=== PATIENT | male | born 1950 | race African-American/Black ===

== ENCOUNTER → 2018-07-16 | Day surgery (SDC) | payer OTHER ==
[~2018-07-16] MED LIST: LIDOCAINE 1% MPF 5 ML VIAL ONE; NA CHLORIDE 0.9% 1,000 ML ONE; PROPOFOL 200 MG/20 ML VIAL IV ONE
--- OUTSIDE RECORDS SUMMARY | 2018-07-16 06:27 | XMS REPORT | Summary of Care ---
:1950 Author Organization [facility] Internal Medicine [facility] [address] [place] [address]- Encounter HQ Yenny(FIN) [id number] Date(s): 05/06/18 - 05/06/18 [facility] Internal [facility] [place] [address] [place] [phone] Discharge Disposition: Home or Self Care Attending Physician: VISIT, NURSE [facility] SLEEP Vital Signs Most recent to oldest [Reference Range]: 1 Blood Pressure [90-140/60-90 mmHg] 126/76 mmHg (05/06/18 2:39 PM) Peripheral Pulse Rate [60-100 bpm] 76 bpm (05/06/18 2:39 PM) Weight 93.636 kg (05/06/18 2:39 PM) Problem List Condition Effective Dates Status Health Status Informant Hypertension(Confirmed) Active Obstructive sleep apnea, Active adult(Confirmed) Allergies, Adverse Reactions, Alerts Substance Reaction Severity Status NKDA1 Active 1Data migrated from [employer] on 05/15/15. Originally documented as NKA. Medications Azopt 1% ophthalmic suspension 2 drp, OPTH, BID, # 10 mL, 0 Refill(s) Start Date: 05/06/18 Status: OrderedCombigan ophthalmic solution 1 drp, OPTH, Q12H, # 10 mL, 0 Refill(s) Start Date: 05/06/18 Status: Orderedfinasteride 5 mg oral tablet 5 mg=1 tab, PO, Daily, # 90 tab, 0 Refill(s) Start Date: 05/06/18 Status: Orderedhydrochlorothiazide-lisinopril 12.5 mg-20 mg oral tablet 1 tab, PO, Daily, # 90 tab, 1 Refill(s) Start Date: 05/06/18 Status: OrderedmetFORMIN 500 mg oral tablet 500 mg=1 tab, PO, BID-Meals, # 60 tab, 0 Refill(s) Start Date: 05/06/18 Status: Orderedrosuvastatin 20 mg oral tablet 20 mg=1 tab, PO, Bedtime, # 90 tab, 3 Refill(s) Start Date: 05/06/18 Stop Date: 08/04/18 Status: Ordered Results No data available for this section Immunizations No data available for this section Procedures Procedure Date Related Diagnosis Body Site Status TURP - Transurethral resection of 03/23/15 Completed prostate Social History Social History Type Response Alcohol Current, Type Beer. Frequency: Daily. 2 Drinks/Episode average. Alcohol use interferes with work or home: No. Smoking Status Never smoker; Exposure to Tobacco Smoke None; Cigarette Smoking Last 365 Days No; Reg Smoking Cessation Counseling No entered on: 05/06/18 Assessment and Plan No data available for this section
--- OUTSIDE RECORDS SUMMARY | 2018-07-16 06:27 | XMS REPORT | Summary of Care ---
:1950 Author Organization [facility] Internal Medicine [place] Address [address] [facility] [place] [address]- Encounter HQ Encntr_alias(FIN) [id number] Date(s): 10/22/17 - 10/22/17 [facility] Internal Medicine [place] [address] [facility] [place] [address] [phone] Discharge Disposition: Home or Self Care Attending Physician: VISIT, NURSE [facility] SLEEP Vital Signs Most recent to oldest [Reference Range]: 1 Blood Pressure [90-140/60-90 mmHg] 130/78 mmHg (10/22/17 2:23 PM) Peripheral Pulse Rate [60-100 bpm] 85 bpm (10/22/17 2:23 PM) Weight 93.636 kg (10/22/17 2:23 PM) Problem List Condition Effective Dates Status Health Status Informant Hypertension(Confirmed) Active Obstructive sleep apnea, Active adult(Confirmed) Allergies, Adverse Reactions, Alerts Substance Reaction Severity Status NKDA1 Active 1Data migrated from [employer] on 05/15/15. Originally documented as NKA. Medications No Known Medications Results No data available for this section [...]
--- OUTSIDE RECORDS SUMMARY | 2018-07-16 06:27 | XMS REPORT | Continuity of Care Document ---
:1950 Author Organization Interface Problems Problem Status Onset Classification Date Comments Source Date Reported Hypertension Active Problem 05/11/2018 [facility] Obstructive Active Problem 05/11/2018 Medical sleep apnea, Group adult Medications Medication Details Route Status Patient Ordering Order Source Instructions Provider Date Brimonidine tartrate 1 drp, Active 2 MG/ML / Timolol 5 OPTH, 019 Medical MG/ML Ophthalmic Q12H, # Group Solution [Combigan] 10 mL, 0 Refill(s) brinzolamide 10 MG/ML 2 drp, Active Ophthalmic Suspension OPTH, 019 Medical [Azopt] BID, # 10 Group mL, 0 Refill(s) finasteride 5 mg oral 5 mg=1 Active tablet tab, PO, 019 Medical Daily, # Group 90 tab, 0 Refill(s) rosuvastatin 20 mg 20 mg=1 Active oral tablet tab, PO, 019 Medical Bedtime, Group # 90 tab, 3 Refill(s) Hydrochlorothiazide 1 tab, Active 12.5 MG / Lisinopril PO, 019 Medical 20 MG Oral Tablet Daily, # Group 90 tab, 1 Refill(s) Metformin 500 mg=1 Active hydrochloride 500 MG tab, PO, 019 Medical Oral Tablet BID-Meals Group , # 60 tab, 0 Refill(s) Allergies, Adverse Reactions, Alerts Substance Category Reaction Severity Reaction Status Date Comments Source type Reported Immunizations Immunization Date Given Site Status Last Updated Comments Source Results Order Results Value Reference Date Interpretation Comments Source Name Range Vital Signs Vital Sign Value Date Comments Source Systolic (mm Hg) 126 05/06/2018 [facility] Diastolic (mm Hg) 76 05/06/2018 [facility] Weight 93.636 05/06/2018 [facility] Heart Rate 76 05/06/2018 [facility] Weight 93.636 10/22/2017 [facility] Heart Rate 85 10/22/2017 [facility] Systolic (mm Hg) 130 10/22/2017 [facility] Diastolic (mm Hg) 78 10/22/2017 [facility] Encounters Location Location Encounter Encounter Reason Attending ADM DC Status Source Details Type Number For Provider Date Date Visit Outpatient [id number] SLEEP LAB 08/21 [place] [facility] [id number] SLEEP LAB 10/22 [facility] Outpatient [id number] NURSE 10/22 10/23 Internal VISIT /2017 [facility] [place] [facility] [id number] SLEEP LAB 05/06 [facility] Outpatient [id number] NURSE 05/06 05/07 Internal VISIT /2018 [facility] [place] [facility] [id number] SLEEP LAB 10/28 [place] [facility] [id number] SLEEP LAB 10/28 [place] Procedures Procedure Code Date Perfomer Comments Source TURP - Transurethral [id number] 03/23/2015 Medical resection of Group prostate
--- OUTSIDE RECORDS SUMMARY | 2018-07-16 06:27 | XMS REPORT | Encounter Summary ---
:1950 Author Care Team Providers Name Role Phone Sean Robert MD Primary Care Provider [phone] Reason for Visit new patient Instructions 1. Benign essential hypertension high blood pressure: care instructions learning about high blood pressure CMP, serum or plasma CBC w/ auto diff 2. Type 2 diabetes mellitus without complication hemoglobin A1c, QN, blood microalbumin, urine 3. Mixed hyperlipidemia lipid panel, serum 4. Blurring of visual image ophthalmology referral 5. Screening for malignant neoplasm of colon general surgery referral Discussion Note: None recorded. Plan of Care Reminders Provider Appointments Follow up Sean Robert MD 11/01/2018 3:30PM Lab CMP, Serum or [place] Plasma 05/04/2018 [facility] (Lab) CBC W/ Auto Diff [place] 05/04/2018 [facility] (Lab) Hemoglobin a1C, [place] QN, Blood 05/04/2018 [facility] (Lab) Microalbumin, [place] Urine 05/04/2018 [facility] (Lab) Lipid Panel, [place] Serum 05/04/2018 [facility] (Lab) Referral Ophthalmology Dl Carey Referral 05/20/2018 General Surgery Ruel Banda DO Referral 05/20/2018 Procedures None recorded. Surgeries None recorded. Imaging None recorded. Medications Name Start Date Azopt 1 % eye drops,suspension INSTILL 1 DROP INTO AFFECTED EYE(S) BY OPHTHALMIC ROUTE 3 TIMES PER DAY Combigan 0.2 %-0.5 % eye drops INSTILL 1 DROP INTO AFFECTED EYE(S) BY OPHTHALMIC ROUTE EVERY 12 HOURS finasteride 5 mg tablet Take 1 tablet every day by oral route. lisinopril 20 mg-hydrochlorothiazide 12.5 mg tablet Take 1 tablet every day by oral route. metformin 500 mg tablet Take 1 tablet twice a day by oral route. rosuvastatin 20 mg capsule 05/04/2018 Take 1 capsule every day by oral route. rosuvastatin 20 mg tablet Take 1 tablet every day by oral route. Medications Administered None recorded. Vitals Height Weight BMI Blood Pressure 72 in 209 lbs 28.3 kg/m2 126/92 mm[Hg] Lab Results None recorded. Allergies Code Code System Name Reaction Severity Status Onset NKDA Problems Name Status Onset Date Source Type 2 Diabetes Mellitus without Complication Active 05/04/2018 Mixed Hyperlipidemia Active 05/04/2018 Blurring of Visual Image Active 05/04/2018 Benign Essential Hypertension Active 05/04/2018 Procedures Date Name Performed by Prostate Surgery Information not available Vaccine List None recorded. Social History Smoking Status Former Smoker Past Encounters 05/04/2018 Benign Essential Hypertension; Type 2 Diabetes Mellitus without Complication; Mixed Hyperlipidemia; Blurring of Visual Image; Screening for Malignant Neoplasm of Colon Sean Robert MD: [address] [place] [address], [address], [place] [address], Ph. [phone] History of Present Illness Note: BLANK[employer] to me<div>CC DM</div><div>hpi 2 yr hx</div>& lt;div>CC htnb</div><div>hpi long standing</div><div> CC lipids</div><div>hpi 2 yr hx</div><div>non smoker drinks 2 beer per day</div><div>ros</div><div>gen healthy</div><div>cv neg</div><div>resp neg</div>& lt;div>gi neg</div><div>gu had BPH surg</div><div>m/ s neg</div><div>
</div>Review of Systems: ROS as noted in the HPI Review of Systems None recorded. Physical Exam Dr. Robert Brief Adult Exam - M/F Reported By: Patient Constitutional: General Appearance: healthy-appearing, well-nourished, well-developed. Level of Distress: NAD. Ambulation: ambulating normally ENMT: Ears: no lesions on external ear, EACs clear, TMs clear, TM mobility normal. Nose: nares patent, nasal passages clear. Oropharynx: moist mucous membranes, no erythema, no exudates, tonsils not enlarged Neck: Neck: supple, trachea midline, no masses, FROM. Lymph Nodes: no cervical LAD, no supraclavicular LAD Lungs: Auscultation: breath sounds normal, good air movement, CTA except as noted, no wheezing, no rales/crackles, no rhonchi Cardiovascular: Heart Auscultation: RRR, no rubs, no gallops. Neck vessels: no carotid bruits Musculoskeletal: Edema absent
--- OUTSIDE RECORDS SUMMARY | 2018-07-16 06:27 | XMS REPORT | Encounter Summary ---
:1950 Author Care Team Providers Name Role Phone Sean Robert MD Primary Care Provider [phone] Reason for Visit New Patient Instructions 1. Screening for malignant neoplasm of colon colonoscopy screening (PROC) Discussion Note: None recorded.Patient educational handouts: No information available. Plan of Care Reminders Provider Appointments Return to on or around [facility] Office 06/01/2018 MD Ace Follow up 11/01/2018 Sean Robert MD 3:30PM Lab None recorded. Referral None recorded. Procedures Colonoscopy 05/18/2018 Screening (PROC) Surgeries None recorded. Imaging None recorded. Medications [...] recorded. Vitals Height Weight BMI Blood Pressure 6 ft 207 lbs 28.1 kg/m2 107/93 mm[Hg] Lab Results Date Name Specimen Result Interpretation Description Value Range Status Address 05/04/2018 Hemoglobin Normal Hemoglobin a1C 6.0 4.0-6.0 Final [place] a1C, QN, Blood % % [facility] (Lab): [address] [facility] 05/04/2018 CBC W/ Auto Normal White Blood 4.9 4.0-12.3 Final [place] Diff Count K/uL K/uL [facility] (Lab): [address] [facility] Normal Red Blood 4.53 3.80-5.8 Final [place] Count M/uL 0 M/uL [facility] (Lab): [address] [place] [address] Normal Hemoglobin 12.0 11.67-17 Final [place] g/dL .22 g/dL [facility] (Lab): [address] [place] [address] Normal Hematocrit 38.6 35.0-51. Final [place] % 0 % [facility] (Lab): [address] [place] [address] Normal Mean 85.2 78-96 fL Final [place] Corpuscular fL [facility] (Lab): [address] [place] [address] Low Mean 26.6 26.8-33. Final [place] Corpuscular pg 4 pg [facility] Hemoglobin [facility] (Lab): [address] [place] [address] Low Mean 31.2 32.3-36. Final [place] Corpuscular HGB g/dL 7 g/dL [facility] (Lab): [address] [place] [address] Normal Red Cell 15.1 11.6-15. Final [place] Distribution % 4 % [facility] (Lab): [address] [place] [address] Normal Platelet Count 201 115-328 Final [place] K/uL K/uL [facility] (Lab): [address] [place] [address] Low Mean Platelet 5.7 8.4-11.8 Final [place] Volume fL fL [facility] (Lab): [address] [place] [address] Normal Neutrophils % 57.7 44.7-82. Corrected [place] % 4 % [facility] (Lab): [address] [place] [address] Normal Lymphocyte% 26.9 10.0-50. Final [place] % 0 % [facility] (Lab): [address] [place] [address] Normal [place] % 9.4 3.9-13.4 Final [place] % % [facility] (Lab): [address] [place] [address] Normal Eos % 4.1 0.0-6.43 Final [place] % % [facility] (Lab): [address] [place] [address] High Basophil % 1.9 0.0-0.72 Final [place] % % [facility] (Lab): [address] [place] [address] 05/04/2018 Differential Normal Neutrophils Incomplete [place] Panel, Blood [facility] (Lab): [address] [place] [address] Normal Band Incomplete [facility] (Lab): [address] [place] [address] Normal Lymphocyte Incomplete [facility] (Lab): [address] [place] [address] Normal Monocyte Incomplete [facility] (Lab): [address] [place] [address] Normal Eosinophil Incomplete [facility] (Lab): [address] [place] [address] Normal Myelocyte Incomplete [facility] (Lab): [address] [place] [address] Normal Platelet Incomplete [place] Estimate [facility] (Lab): [address] [place] [address] Normal Platelet Incomplete [place] Morphology [facility] (Lab): [address] [place] [address] Normal Poikilocytosis Incomplete [facility] (Lab): [address] [place] [address] Normal Smudge Cells Incomplete [facility] (Lab): [address] [place] [address] Normal Differential Incomplete [place] comment-P [facility] (Lab): [address] [place] [address] 05/04/2018 Microalbumin, Normal Microalbumin 18.8 0-20 Final [place] Urine Random mg/L mg/L [facility] (Lab): [address] [place] [address] 05/04/2018 CMP, Serum or Normal Glucose 101 82-115 Final [place] Plasma mg/d mg/dL [facility] (Lab): [address] [place] [address] Normal Blood Urea 22 8-23 Final [place] Nitrogen mg/d mg/dL [facility] (Lab): [address] [place] [address] Normal Osmolality 283 280-300 Final [place] Calculated, [facility] (Lab): [address] [place] [address] Normal Creatinine 1.1 0.70-1.2 Final [place] mg/d 0 mg/dL [facility] (Lab): [address] [place] [address] Normal Glomerular >60. Final [place] Filtration Rate 00 [facility] (Lab): [address] [place] [address] Normal BUN/creatinine 20.0 12-20 Final [place] Ratio [facility] (Lab): [address] [place] [address] Normal Sodium Level 140 135-145 Final [place] mmol mmol/L [facility] (Lab): [address] [place] [address] Normal Potassium 4.2 3.5-5.2 Final [place] Level mmol mmol/L [facility] (Lab): [address] [place] [address] Normal Chloride Level 103 98-108 Final [place] mmol mmol/L [facility] (Lab): [address] [place] [address] Normal Co2 25 21-32 Final [place] mmol mmol/L [facility] (Lab): [address] [place] [address] Normal Anion Gap 16.2 12-20 Final [place] mEq/ mEq/L [facility] (Lab): [address] [place] [address] Normal Calcium Level 9.7 8.8-10.2 Final [place] mg/d mg/dL [facility] (Lab): [address] [place] [address] Normal Total Protein 7.4 6.6-8.7 Final [place] g/dL g/dL [facility] (Lab): [address] [place] [address] Normal Albumin 4.6 3.5-5.2 Final [place] g/dL g/dL [facility] (Lab): [address] [place] [address] Normal Globulin 2.8 Final [place] gm/d [facility] (Lab): [address] [place] [address] Normal A/g Ratio 1.6 >1.0 Final [place] [facility] (Lab): [address] [place] [address] Normal Bilirubin,tota <0.3 0.0-1.2 Final [place] l mg/d mg/dL [facility] (Lab): [address] [place] [address] Normal AST/SGOT 18 15-40 Final [place] U/L U/L [facility] (Lab): [address] [place] [address] Normal ALT/SGPT 18 0-41 U/L Final [place] U/L [facility] (Lab): [address] [place] [address] Normal Alkaline 51 40-130 Final [place] Phosphatase, U/L U/L [facility] (Lab): [address] [place] [address] 05/04/2018 Lipid Panel, High Cholesterol 249 150-200 Final [place] Serum Level mg/d mg/dL [facility] (Lab): [address] [place] [address] Normal Triglycerides 104 <150 Final [place] Level mg/d mg/dL [facility] (Lab): [address] [place] [address] Normal HDL 75 >55 Final [place] Cholesterol mg/d mg/dL [facility] (Lab): [address] [place] [address] High LDL 174 <100 Final [place] Cholesterol mg/d mg/dL [facility] (Lab): [address] [place] [address] Normal Cholesterol 3.32 Final [place] Risk Ratio 0 [facility] (Lab): [address] [place] [address] Allergies Code Code System Name Reaction Severity Status Onset NKDA Problems Name Status Onset Date Source Type 2 Diabetes Mellitus without Complication Active 05/04/2018 Mixed Hyperlipidemia Active 05/04/2018 Blurring of Visual Image Active 05/04/2018 Benign Essential Hypertension Active 05/04/2018 Procedures Date Name Performed by Prostate Surgery Information not available Vaccine List None recorded. Social History Smoking Status Former Smoker Past Encounters 05/18/2018 Screening for Malignant Neoplasm of Colon Say Bello MD: [address], [address], [place] [address] , Ph. [phone] 05/04/2018 Benign Essential Hypertension; Type 2 Diabetes Mellitus without Complication; Mixed Hyperlipidemia; Blurring of Visual Image; Screening for Malignant Neoplasm of Colon Sean Robert MD: [address], [address], [place] [address], Ph. History of Present Illness Note: cc: screening colonoscopy
HPI: 67 yo male referred by Dr Pascal. No blood in stool, no weight loss or bowel habit changes. Had a colonoscopy 10 yrs ago with polyps.
Screening Colonoscopy
< br>Discussed and illustrated colon anatomy. Discussed signs, symptoms and risks of colon cancer. Reviewed incidence of colon cancer and screening criteria. Discussed interventionsto remove or mayco polyps or masses. Discussed iv general anesthesia and need for ride home postop. Reviewed diverticular disease, hemorroids and AVM. Discussed benefits and risks to include bleeding, infection, perforation and gas pains. Discussed prep at length and gave instructions in writing. Discussed repeat colonoscopy criteria. Discussed outpatient procedure. Pt verbalized understanding of procedure and risks, and all questions were answered to the patient's satisfaction. Pt wishes to proceed with colonoscopy. Prep instructions given to the patient in writing. Review of Systems General Adult ROS Reported By: Patient Constitutional: Constitutional: no fever, no night sweats, no significant weight gain, no significant weight loss, no exercise intolerance Eyes: Eyes: no dry eyes, no irritation, no vision change ENMT: Ears: no difficulty hearing, no ear pain. Nose: no frequent nosebleeds, no nose/sinus problems. Mouth/Throat: no sore throat, no bleeding gums, no snoring, no dry mouth, no mouth ulcers, no oral abnormalities, no teeth problems, No Post Nasal Dripping, Constantly clearing the throat, hiccups, itching throat, (normal) weak voice: constant Cardiovascular: Cardiovascular: no chest pain, no arm pain on exertion, no shortness of breath when walking, no shortness of breath when lying down, no palpitations, no known heart murmur Respiratory: Respiratory: no cough, no wheezing, no shortness of breath, no coughing up blood Gastrointestinal: Gastrointestinal: no abdominal pain, no vomiting, normal appetite, no diarrhea, not vomiting blood Genitourinary: Genitourinary: no incontinence, no difficulty urinating, no hematuria, no increased frequency Musculoskeletal: Musculoskeletal: no muscle aches, no muscle weakness, no arthralgias/joint pain, no back pain, no swelling in the extremities Integumentary: Skin: no abnormal mole, no jaundice, no rashes Neurologic: Neurologic: no loss of consciousness, no weakness, no numbness, no seizures, no dizziness, no headaches Psychiatric: Psych: no depression, no sleep disturbances, feeling safe in relationship, no alcohol abuse Endocrine: Endocrine: no fatigue Hematologic/Lymphatic: Hematologic/Lymphatic no swollen glands, no bruising Allergic/Immunologic: Allergy/Immunologic: no runny nose, no sinus pressure, no itching, no hives, no frequent sneezing Physical Exam Pre-Op Exam Reported By: Patient Constitutional: General Appearance: healthy-appearing, well-nourished, well-developed Psychiatric: Orientation: to time, to place, to person Skin: Inspection and palpation: no rash, no lesions, no induration Eyes: Pupils: PERRLA. EOM: EOMI ENMT: Lips, Teeth, and Gums: normal dentition Neck: Neck: supple, FROM Lungs: Auscultation: breath sounds normal, CTA except as noted, no wheezing, no rales/crackles, no rhonchi Cardiovascular: Heart Auscultation: RRR, no murmurs, no rubs, no gallops. Neck vessels: no carotid bruits. Pulses including femoral / pedal: normal throughout Abdomen: Bowel Sounds: normal. Inspection and Palpation: soft, non-distended, no tenderness (no guarding, no rebound), no masses, no CVA tenderness. Liver: non-tender, no hepatomegaly. Spleen: non-tender, no splenomegaly Back: Thoracolumbar Appearance: normal curvature Musculoskeletal:: Joints, Bones, and Muscles: normal movement of all extremities, no malalignment, no tenderness. Extremities: no cyanosis, no edema, no varicosities Neurologic: Gait and Station: normal gait, normal station. Cranial Nerves: grossly intact. Sensation: grossly intact. Reflexes: DTRs 2+ bilaterally throughout
--- NOTE | 2018-07-16 08:41 | ENDO RPT ---
[address], [address] COLONOSCOPY PROCEDURE REPORT EXAM DATE: 07/16/2018 PATIENT NAME: King Cruz MR #: [id number] BIRTHDATE: 1950 ATTENDING: Jose Martin Moore DR STATUS: outpatient IT APPLICATION SUPPORT ANALYST: Subha Cochran RN, Eze Singh RN, and Kyle Panchal INDICATIONS: The patient is a 68 yr old Male here for a colonoscopy due to colon cancer screening PROCEDURE PERFORMED: Colonoscopy with biopsy - cold polypectomy MEDICATIONS: Per Anesthesia. ESTIMATED BLOOD LOSS: None CONSENT: The patient understands the risks and benefits of the procedure and understands that these risks include, but are not limited to: sedation, allergic reaction, infection, perforation and/or bleeding. Alternative means of evaluation and treatment include, among others: physical exam, x-rays, and/or surgical intervention. The patient elects to proceed with this endoscopic procedure. DESCRIPTION OF PROCEDURE: During intra-op preparation period all mechanical medical equipment was checked for proper function. Hand hygiene and appropriate measures for infection prevention was taken. Procedure, possible complications, alternatives including, but not limited to possibility of bleeding, perforation, tear, infection, sepsis, need for surgery, need for blood transfusion, were explained to the patient. After the risks, benefits and alternatives of the procedure were thoroughly explained, Informed consent was verified, confirmed and timeout was successfully executed by the treatment team. The patient was placed in the left lateral position. A digital rectal exam was performed and revealed an enlarged prostate and A digital rectal exam was performed and revealed internal hemorrhoids. After appropriate level of anesthesia, the scope was passed. The EC-[id number] ([id number]) endoscope was introduced through the anus and advanced to the cecum, which was identified by both the appendix and ileocecal valve. The quality of the prep was fair. The instrument was then slowly withdrawn as the colon was fully examined. Scope withdrawal time was 10 minutes. COLON FINDINGS: A small smooth and polypoid shaped semi-pedunculated polyp with a friable surface was found at the cecum. A polypectomy was performed with cold forceps. The resection was complete, the polyp tissue was completely retrieved and sent to histology. Mild diverticulosis was noted throughout the entire examined colon. No bleeding was noted from the diverticulosis. Small internal hemorrhoids were found. Retroflexed views revealed no abnormalities. The scope was then completely withdrawn from the patient and the procedure terminated. ADVERSE EVENTS: There were no complications. IMPRESSIONS: 1. Small semi-pedunculated polyp was found at the cecum; polypectomy was performed in a piecemeal fashion with cold forceps 2. Mild diverticulosis was noted throughout the entire examined colon 3. Small internal hemorrhoids RECOMMENDATIONS: 1. avoid NSAIDS for 2 weeks 2. await biopsy results 3. follow-up: office 2 week(s) 4. yearly hemoccult starting in 4 years 5. hemorrhoidal hygiene 6. low fiber / diverticular diet RECALL: Return in 5 year(s) for Colonoscopy, pending biopsy results. Pending Biopsy Jose Martin Moore DR eSigned: Jose Martin Moore DR 07/16/2018 8:41 AM cc: CPT CODES: ICD9 CODES: PATIENT NAME: King Cruz MR#: [id number]
== END ==
LOC: OR 06:24
PROVIDERS: ATTEND Surgery
PROC: 0DBH8ZX Excision of Cecum, Via Natural or Artificial Opening Endoscopic, Diagnostic (ICD-10-PCS; principal; 2018-07-16 08:15)
DX: Z12.11 Encounter for screening for malignant neoplasm of colon (principal); K63.5 Polyp of colon; K57.30 Diverticulosis of large intestine without perforation or abscess without bleeding; K64.8 Other hemorrhoids; E11.9 Type 2 diabetes mellitus without complications; I10 Essential (primary) hypertension; Z79.84 Long term (current) use of oral hypoglycemic drugs; Z79.899 Other long term (current) drug therapy
CPT/HCPCS: 45380; 82962; 88305; J2704 ×2; J7030